=== PATIENT | male | born 1980 | race Caucasian/White ===

== ENCOUNTER 2017-08-08 20:24 | Observation (INO) ==
[2017-08-08] MEDS ORDERED: 0.9 % SODIUM CHLORIDE 1,000 ML IV ONE (21:00)
[2017-08-08] MEDS ORDERED: ONDANSETRON 4 MG/2 ML VIAL IV ONE (21:00)
[2017-08-08] MEDS: HYDROmorphone 2 MG/ML SYRINGE IV PRN ×2 (21:12→21:58)
--- NOTE | 2017-08-08 21:13 | Emergency Department Note ---
Abdominal Pain HPI - General Chief Complaint: Abdominal Pain Stated Complaint: abdominal pain Time Seen by Provider: 08/08/17 20:58 Source: patient Mode of arrival: ambulatory Limitations: no limitations - History of Present Illness HPI Narrative: This patient has had abdominal pain nausea vomiting since Saturday. In 2016 had a rectal carcinoma and had surgery with a colostomy had radiation and chemotherapy. 3 months ago he had a takedown of his colostomy. He went to [facility] and had a complete workup and was going to be admitted but got upset because they were not dealing with his pain. He then came over to our ER. I discussed case with Dr. Lane and he will be admitted. - Related Data Home Medications Medication Instructions Recorded Confirmed morphine 15 mg PO PRN PRN 04/12/17 04/12/17 Allergies Allergy/AdvReac Type Severity Reaction Status Date / Time metoclopramide [From Reglan] Allergy Severe Anxiety Verified 04/12/17 08:05 Review of Systems All systems ED: reviewed and negative except as stated. Abdominal Pain PMH - Past Medical History Medical history: Reports: cancer (colon) Surgical history ED: Reports: colectomy, colostomy - Social History Smoking status: Former smoker Physical Exam - General Limitations: no limitations General appearance: alert - Head Head exam: atraumatic - Eye Eye exam: Present: normal appearance - ENT ENT exam: normal exam - Neck Neck exam: Present: normal inspection - Chest Chest inspection: Present: normal inspection - Respiratory Respiratory exam: Present: normal lung sounds bilaterally - Cardiovascular Cardiovascular exam: Present: regular rate, normal rhythm, normal heart sounds - Abdominal Exam Abdominal exam: Present: soft, tenderness, hypoactive bowel sounds. Absent: distention, guarding, rebound, rigidity Abdominal tenderness: Present: diffuse, moderate - Neurological Exam Neurological exam: Present: alert - Psychiatric Psychiatric exam: Present: normal affect, normal mood - Skin Skin exam: Present: warm, dry, intact Course Vital Signs Temperature 97.6 F 08/08/17 20:25 Pulse Rate 69 08/08/17 20:25 Respiratory Rate 19 08/08/17 20:25 Blood Pressure 144/89 08/08/17 20:25 Pulse Oximetry (%) 100 08/08/17 20:25 Temperature 97.6 F 08/08/17 20:25 Pulse Rate 69 08/08/17 20:25 Respiratory Rate 19 08/08/17 20:25 Blood Pressure 144/89 08/08/17 20:25 Pulse Oximetry (%) 100 08/08/17 20:25 Disposition Pt seen by IT ARCHITECTURE CONSULTANT/PA only: No Clinical Impression: Abdominal pain, Gastroenteritis Disposition: Xfer As Outpt/Obs ([facility]) Condition: Good Referrals: Ivan Renee MD [Primary Care Provider] - Time of Disposition: 21:13
[2017-08-08] MEDS ORDERED: PROMETHAZINE 25 MG/ML VIAL IV PRN (22:32)
[2017-08-08] MEDS ORDERED: ONDANSETRON 4 MG/2 ML VIAL IV PRN (22:32)
[2017-08-08] MEDS ORDERED: ALBUTEROL SULFATE 2.5 MG/3 ML NEBULIZER NEB PRN (22:32)
[2017-08-08] MEDS ORDERED: ACETAMINOPHEN 325 MG TABLET PO PRN (22:32)
[2017-08-08] MEDS ORDERED: HYDROmorphone 2 MG/ML SYRINGE IV PRN (22:59)
--- NOTE | 2017-08-08 23:10 | Internal Med History&Physical ---
Medical - H&P: HPI Patient information: Note initiated : 08/08/17 at 11:07 pm Service Date, if different from initiated Date: [] Patient: Kay Aleman a 37 y/o M admitted on 08/08/17 for abdominal pain. Chief Complaint: [] History of present illness: Mr. Aleman is a 37 year old Male with h/o rectal cancer , s/p resection, radiation and chemo presents to the hospital after signing out AMA from [facility] . The patient has presented to the hospital due to abdominal pain, in the right lower and left lower quadrant, sharp, constant with waxing and waning features. movement making it worse, better with opiate pain meds. This was associated with nausea and vomiting. The patient has been able to tolerate some po but not much. He seems to have been diagnosed with rectal CA last year, s/p resection by Dr Man, he had chemo and radiation after surgery. He had a colonoscopy done in 04/06, On digital exam the anastomosis was easily felt. It was tight but could easily be dilated to admit an index finger. Colonoscope was then introduced into the rectum and passed around to the cecum. The ileocecal valve and appendiceal orifice were clearly seen. He had inspissated mucus and barium throughout the colon but no polyps, masses or mucosal abnormalities were seen. The anoscope was then inserted and the anastomosis further dilated to admit the anoscope. The patient tolerated the procedure well. No complications. He underwent a reanastomosis of the divertiing ilostomy later. In the [facility] ER the patient has normal labs and vitals. wbc 6.0, hb 15, plat 194, Na 133, K 4.2, Bicarb 26, bun 14, creat 1.[address] glucose [address] showed minimally dilated small and large bowel ileus, large stool in the large intestine.anastomosis in the rectosigmoid with thickening and is heterogenous. All systems: reviewed and no additional remarkable complaints except as stated ( as per HPI) Medical - H&P: PMH Medical history: colon cancer back pain, arhtritis. Surgical history: s/p rectal resection. colostomy and revision. Family history: reviewed and not pertinent (no h/o colon ca,) Social history: non smoker, denies heavy etoh use, uses thc intermittently Medical - H&P: Meds Home Medications Medication Instructions Recorded Confirmed Type morphine 15 mg PO PRN PRN 04/12/17 08/08/17 History Allergies Allergy/AdvReac Type Severity Reaction Status Date / Time metoclopramide [From Reglan] Allergy Severe Anxiety Verified 04/12/17 08:05 Medical - H&P: Exam - Constitutional Vitals: Temp Pulse Resp BP Pulse Ox 97.4 F 57 L 14 130/82 99 08/08/17 22:27 08/08/17 22:27 08/08/17 22:27 08/08/17 22:27 08/08/17 22:27 Exam: GENERAL: The patient is a well-developed, well-nourished in no apparent distress. Is alert and oriented x3. VITAL SIGNS: Reviewed and as noted elsewhere. HEENT: Head is normocephalic and atraumatic. Extraocular muscles are intact. Pupils are equal, round, and reactive to light. Nares appeared normal. Mouth appears any without lesions. Mucous membranes are moist. NECK: Normal to inspection, Supple, No lymphadenopathy or thyromegaly. LUNGS: Air entry equal on both sides, no wheezing, crackles or rhonchi noted. No accessory muscles of respiration HEART: Regular rate and rhythm normal, S1 and S2 heard, no Gallop, S3 or Rub Noted, No Gross murmur heard. ABDOMEN: soft, diffuse tenderness, maximally in the right lumbar, lower quadraant, and the left lumbar,lower quadrant, hypoactive bowel sounds. EXTREMITIES: No cyanosis, clubbing, rash, lesions or edema. NEUROLOGIC: Cranial nerves II through XII are grossly intact. Motor and Sensory System Grossly Intact PSYCHIATRIC: Normal affect, Normal Mood. Appropriate Behavior. SKIN: No ulceration or wounds noted, No jaundice, No rash noted. Medical - H&P: A/P (1) Stricture of sigmoid colon Current visit: Yes Status: Acute (2) Abdominal pain Current visit: Yes Status: Acute (3) Constipation Current visit: Yes Status: Acute - Narrative A/P Narrative: A/P Abdominal pain Nausea and Vomiting Possible Stricture of rectosigmoid anastomosis, Constipation Plan NPO status for now, NG Tube if patient has persistent vomiting Surgery consulted, Dr Lane advised to get Gastrografin enema in AM. Patient likely has a stricture at the region of rectosigmoid anastomosis, given his last colonoscopy done showed narrow orifice. He was scheduled for repeat colonoscopy this week. IV Dilaudid for pain management ( was taking morphine IR at home 15mg 3-4 times day IV fluids dvt hep sq full code.
[2017-08-08] MEDS ORDERED: DEXTROSE 5%-1/2NS W/20MEQ KCL 1,000 ML IV SCH (23:15)
[2017-08-08] MEDS: 0.9 % SODIUM CHLORIDE 10 ML SYRINGE IV SCH (23:25)
[2017-08-09] MEDS ORDERED: PROMETHAZINE 25 MG/ML VIAL ONE (00:46)
[2017-08-09] MEDS ORDERED: HYDROmorphone 2 MG/ML SYRINGE ONE ×2 (00:46→04:28)
[2017-08-09] MEDS ORDERED: ONDANSETRON 4 MG/2 ML VIAL ONE (04:43)
[2017-08-09 05:21] LABS: Mean Cell Volume 87.2 fL (80.0-100.0); Mean Corpuscular HGB Conc 33.6 g/dL (31.0-36.0); Mean Corpuscular Hemoglobin 29.3 pg (26.0-34.0); Platelet Count 191 K/mcL (140-440); RBC 4.77 M/mcL (4.50-5.90); Red Cell Distribution Width 14.7 % (11.5-14.5)
[2017-08-09] MEDS: 0.9 % SODIUM CHLORIDE 10 ML SYRINGE IV SCH (05:40)
[2017-08-09 05:43] LABS: ALT/SGPT 7 U/l (0-40); Albumin 3.7 gm/dL (3.2-5.2); Albumin/Globulin Ratio 1.4 (1.0-2.3); Alkaline Phosphatase 56 U/L (39-117); Bilirubin,Direct < 0.2 mg/dL (0.0-0.3); Blood Urea Nitrogen 14 mg/dl (6-20); Gamma Glutamyl Transpeptidase 15 U/L (8-61); Uric Acid 5.1 mg/dL (2.5-8.0)
[2017-08-09 06:18] LABS: Band Neutrophils % 2 % (0-10); Lymphocytes % 13 % (15-49); Monocytes % (Manual) 13 % (1-12); Platelet Estimate NORMAL (NORMAL); RBC Morphology NORMAL (NORMAL); Segmented Neutrophils % 72 % (38-78)
[2017-08-09] MEDS ORDERED: HEPARIN 5,000 UNIT/ML VIAL SQ SCH (09:00)
[2017-08-09] MEDS ORDERED: FAMOTIDINE/PF 20 MG/2 ML VIAL IV SCH (09:00)
--- NOTE | 2017-08-09 10:58 | Transfer Summary ---
Transfer Discharge Sum: Prov Patient information: Note initiated : 08/09/17 at 10:52 am Service Date, if different from initiated Date: [] Patient: Kay Aleman 37 y/o M admitted on 08/08/17 for Abdominal Pain, Gastroenteritis. Chief Complaint: [] Date of admission: 08/08/17 22:27 Discharge Date: 08/09/17 Primary care physician: Ivan Renee Admitting clinician: Perlita Jackson Consults: 08/08/17 22:02 Consult to Physician [CONS] Stat Comment: Consulting Provider: Perlita Jackson Reason For Exam: Physician to Consult 08/08/17 22:03 Consult to Physician [CONS] Stat Comment: Consulting Provider: Marck Lane Reason For Exam: Physician to Consult 08/08/17 22:32 Consult to Physician [CONS] Stat Comment: h/o rectal cancer, abdominal pain Consulting Provider: Marck Lane Reason For Exam: Physician to Consult Discharging clinician: Perlita Jackson Receiving physician/facility: Dr Fer Carolina Surgery/ [facility] Transfer Discharge Sum: Diag - Discharge Diagnosis (1) Stricture of sigmoid colon Status: Acute (2) Abdominal pain Status: Acute (3) Constipation Status: Acute Transfer Discharge Sum: Med - Medications Active and Home Medications: Home Medications morphine 15 mg PO DAILY 04/12/17 [History Confirmed 08/08/17] Active Medications Acetaminophen (Tylenol) 650 mg PO Q6HP PRN PRN Reason: PAIN/FEVER > 101 Albuterol Sulfate (Ventolin) 2.5 mg NEB Q2HP PRN PRN Reason: Shortness Of Breath Famotidine (Pepcid) 20 mg IV Q12 KATIE Last Admin: 08/09/17 09:28 Dose: 20 mg Hydromorphone HCl (Dilaudid) 1 mg IV Q2HP PRN PRN Reason: Pain Last Admin: 08/09/17 09:27 Dose: 1 mg Potassium Chloride/Dextrose/Sod Cl (Dextrose 5%-1/2ns W/20meq Kcl) 1,000 mls @ 84 mls/hr IV .[id number] KATIE Last Admin: 08/08/17 23:25 Dose: 84 mls/hr Ondansetron HCl (Zofran) 4 mg IV Q6HP PRN PRN Reason: Nausea And Vomiting Promethazine HCl (Phenergan) 12.5 mg IV Q6HP PRN PRN Reason: Nausea And Vomiting Last Admin: 08/09/17 08:52 Dose: 12.5 mg Sodium Chloride (Saline Flush) 10 ml IV Q8 KATIE Last Admin: 08/09/17 05:40 Dose: Not Given Transfer Discharge Sum: Hosp Hospital course: Mr. Aleman is a 37 year old Male with h/o rectal cancer , s/p resection, radiation and chemo presents to the hospital after signing out AMA from [facility] . The patient has presented to the hospital due to abdominal pain, in the right lower and left lower quadrant, sharp, constant with waxing and waning features. movement making it worse, better with opiate pain meds. This was associated with nausea and vomiting. The patient has been able to tolerate some po but not much. He seems to have been diagnosed with rectal CA last year, s/p resection by Dr Man, he had chemo and radiation after surgery. He had a colonoscopy done in 04/06, which was concerning for rectosigmoid stenosis. He underwent a reanastomosis of the diverting ileostomy later. In the [facility] ER the patient has normal labs and vitals. wbc 6.0, hb 15, plat 194, Na 133, K 4.2, Bicarb 26, bun 14, creat 1.[address] glucose [address] showed minimally dilated small and large bowel ileus, large stool in the large intestine.anastomosis in the rectosigmoid with thickening and is heterogenous. The patient was admitted to the hospital and surgery was consulted, Dr Lane evaluated the patient and reviewed his history. The patient will need further investigations to determine and chart the treatment course, this is best done with the surgery group who has been involved with the patients previous procedures. Dr Lane discussed the case with Dr Man as well as Dr Carolina and they agreed to have the patient transferred to [facility] for further management. Overnight the patient had one episode of vomiting after meds, no BM but did pass gas and was feeling better after same. His labs were unremarkable this AM The patient will be transferred to [facility] for further evaluation by his previous surgery group. Dr Fer Carolina as accepting physician. - Time Spent with Patient Total time spent providing and/or coordinating transfer services: Less than 30 minutes Transfer Discharge Sum: Exam - Constitutional Vitals: Vital Signs Temp Pulse Pulse Resp BP BP BP 08/09/17 08:00 98.1 F 64 14 123/71 08/09/17 04:00 97.5 F 57 L 16 131/76 08/09/17 00:15 98.8 F 69 16 124/78 08/08/17 22:27 97.4 F 57 L 14 130/82 08/08/17 22:20 97.6 F 68 19 139/92 08/08/17 21:31 139/92 08/08/17 21:01 68 139/95 08/08/17 20:46 62 130/81 08/08/17 20:25 97.6 F 69 19 144/89 Pulse Ox 08/09/17 08:00 98 08/09/17 04:00 98 08/09/17 00:15 98 08/08/17 22:27 99 08/08/17 22:20 98 08/08/17 21:31 08/08/17 21:01 98 08/08/17 20:46 100 08/08/17 20:25 100 Intake and Output 08/08/17 08/09/17 08/09/17 21:59 05:59 13:59 Intake Total 1000 / 1000 180 / 180 180 / 180 Output Total 50 / 50 Balance 1000 / 1000 130 / 130 180 / 180 Intake: IV 1000 / 1000 Sodium Chloride 0.9% 1,000 ml @ 1000 / 1000 Wide Open IV BOLUS ONE Rx#: [id number] Oral 180 / 180 180 / 180 Output: Emesis 50 / 50 Other: Meal Nourishment/Supplement Percent of Meal Consumed 0% # Voids 1 Weight 190 lb 197 lb Additional comments: Constitutional; Afebrile, cooperative, alert, not in distress. Eyes- No icterus, , No periorbital swelling Ears- Ext ear normal, hearing normal to conversation. Neck- Midline trachea, supple Respiratory system: Air Entry equal on both sides, No crackles or wheezing, no rhonchi. CVS- Rate rhythm regular, S1,S2 heard, no gallop, no rub. Abdomen- Soft tenderness generalized but improved since yesterday, bowel sounds better today SEASONAL SALES ASSOCIATE- AOOx3, moving all extremities, no gross focal deficit noted. Transfer Discharge Sum: Data Procedures and tests throughout hospitalization: Pending Orders 08/08/17 21:51 Resuscitation Status Routine 08/08/17 22:02 Consult to Physician [CONS] Stat 08/08/17 22:03 Consult to Physician [CONS] Stat 08/08/17 22:32 Case Management Referral .Routine Condition Routine IV Insertion/Management QSHIFT Intake and Output qshiftio Notify Provider .routine Placement to Observation Routine Vital Signs Q4 Weight Monitoring QHS Consult to Physician [CONS] Stat 0.9 % Sodium Chloride [Saline Flush] 10 ml IV Q8 Acetaminophen [Tylenol] 650 mg PO Q6HP PRN Albuterol Sulfate [Ventolin] 2.5 mg NEB Q2HP PRN Ondansetron [Zofran] 4 mg IV Q6HP PRN Promethazine [Phenergan] 12.[address] to Adjust Diet/Supplements as Needed Routine Incentive Spirometry Assess/Tx Q2HWA Nebulizer management .Routine Oxygen Order .Routine 08/08/17 22:59 Camera Engineer Referral .Routine HYDROmorphone [Dilaudid] 1 mg IV Q2HP PRN 08/08/17 23:15 Dextrose 5%-1/2Ns W/20Meq KCl 1,000 ml IV 84 mls/hr 08/08/17 Dinner NPO Except Ice Chips Diet (NOW) 08/09/17 07:00 XR enema w gastrographin Stat 08/09/17 09:00 Famotidine/Pf [Pepcid] 20 mg IV Q12 08/10/17 04:00 Complete Blood Count Man Dif DAILY Inpatient Panel DAILY 08/11/17 04:00 Complete Blood Count Man Dif DAILY Inpatient Panel DAILY 08/12/17 04:00 Complete Blood Count Man Dif DAILY Inpatient Panel DAILY 08/13/17 04:00 Complete Blood Count Man Dif DAILY Inpatient Panel DAILY 08/14/17 04:00 Complete Blood Count Man Dif DAILY Inpatient Panel DAILY Transfer Discharge Sum: A/P - Problem Maintenance (1) Stricture of sigmoid colon Status: Acute (2) Abdominal pain Status: Acute (3) Constipation Status: Acute - Plan Functional capacity at transfer: independent ambulation Overall status at transfer: patient is not back to baseline Disposition: [facility]
--- NOTE | 2017-08-09 11:03 | General Surgery Consult Note ---
History of Present Illness Patient information: Note initiated : 08/09/17 at 10:58 am Service Date, if different from initiated Date: [] Patient: Kay Aleman 37 y/o M admitted on 08/08/17 for Abdominal Pain, Gastroenteritis. Chief Complaint: [] Reason for consult: abdominal pain Requesting physician: Perlita Jackson History of present illness: 37-year-old male admitted with the distal high-grade colorectal stricture and partial colonic obstruction. The patient underwent laparoscopic low anterior resection after chemoradiation for rectal carcinoma in June 2016. He underwent 16 more weeks of chemoradiation and had takedown of his protective loop ileostomy in MarchApril 2017.. Since that time he has had irregular bowel movements up to 15 times per day. He does not have diarrhea. He had dilation of his rectal stump prior to re-anastomosis about 6 months before re- anastomosis was carried out. He states that his symptoms started on Saturday when his bowel movements stopped. He had severe crampy abdominal pain followed by nausea and vomiting. He was seen in the emergency room at [facility] but had some difficulty with the physician and transferred to our emergency room where he was evaluated and admitted. The patient is being seen in consultation. He states that he feels much better. His pain is controlled. He has less distention and he is passing large volume of flatus. After discussion with the patient I contacted the operating surgeon Dr. Arsh Man who is out of town but who stated that his partner Dr. Fer Carolina would accept the patient in transfer. The patient is clinically stable at this time and can be transferred to the surgery service under the care of Dr. Carolina at [facility]. 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 Rectal carcinoma Past surgical history: Low anterior resection with primary anastomosis With protective loop ileostomy Ileostomy reversal Transanal dilation of colorectal stricture Past family history: Mother age 57 with history of cervical cancer Father age 58 health unknown Maternal grandparent with mesothelioma Past social history: medically disabled Over [id number] smoking history stopped 1 year ago Denies alcohol use Denies drug use Medications and Allergies Home Medications Medication Instructions Recorded Confirmed Type morphine 15 mg PO DAILY 04/12/17 08/08/17 History Allergies Allergy/AdvReac Type Severity Reaction Status Date / Time metoclopramide [From Reglan] Allergy Severe Anxiety Verified 04/12/17 08:05 Exam Temp Pulse Resp BP Pulse Ox 98.1 F 64 14 123/71 98 08/09/17 08:00 08/09/17 08:00 08/09/17 08:00 08/09/17 08:00 08/09/17 08:00 - General physical appearance well developed, well nourished, no distress - Eyes PERRL, normal ocular movement - ENT normal pinna, normal nares, normal mucosa, no hearing loss, no congestion - Head Head exam IM: Present: atraumatic, normocephalic - Neck no masses, no bruits, trachea midline, no lymphadectomy, no venous distension - Cardiovascular Cardiovascular exam IM: Present: normal rate and rhythm - Respiratory normal expansion, normal respiratory effort, clear to percussion, clear to auscultation - Abdomen Abdomen: Present: soft, non tender, bowel sounds, distended (Abdomen is much less distended with good active bowel sounds) Hernia: Present: none - Genitourinary Present: normal penis with no external lesions - Rectum Rectum: Present: normal sphincter tone, no hemorrhoids, no tenderness, no masses , no bleeding, other (Very tight colorectal anastomosis with solid stool above the strictured area and induration of the rectal wall) - Integumentary Present: no rash, no growths, no abnormal pigmentation - Neurologic Present: normal coordination, normal sensation - Musculoskeletal Present: normal gait, normal posture - Psychiatric Present: oriented to time, oriented to person, oriented to place, speech is normal, memory intact Results - Labs 08/09/17 04:17 08/09/17 04:17 Abnormal lab results 08/09/17 08/09/17 Range/Units 04:17 04:17 RDW 14.7 H (11.5-14.5) % Lymphocytes % 13 L (15-49) % Monocytes % (Manual) 13 H (1-12) % Glucose 114 H (70-105) mg/dL Diabetes panel 08/09/17 Range/Units 04:17 Sodium 136 (133-145) mmol/L Potassium 4.1 (3.3-5.1) mmol/L Chloride 98 (96-108) mmol/L Carbon Dioxide 24 (22-30) mmol/L BUN 14 (6-20) mg/dl Creatinine 1.1 (0.7-1.2) mg/dl Glucose 114 H (70-105) mg/dL Calcium 8.6 (8.6-10.4) mg/dl AST 10 (0-37) U/l ALT 7 (0-40) U/l Alkaline Phosphatase 56 (39-117) U/L Total Protein 6.3 (5.9-8.4) gm/dL Albumin 3.7 (3.2-5.2) gm/dL Triglycerides 76 (<150) mg/dl Calcium panel 08/09/17 Range/Units 04:17 Calcium 8.6 (8.6-10.4) mg/dl Phosphorus 4.1 (2.7-4.5) mg/dL Albumin 3.7 (3.2-5.2) gm/dL Pituitary panel 08/09/17 Range/Units 04:17 Sodium 136 (133-145) mmol/L Potassium 4.1 (3.3-5.1) mmol/L Chloride 98 (96-108) mmol/L Carbon Dioxide 24 (22-30) mmol/L BUN 14 (6-20) mg/dl Creatinine 1.1 (0.7-1.2) mg/dl Glucose 114 H (70-105) mg/dL Calcium 8.6 (8.6-10.4) mg/dl Adrenal panel 08/09/17 Range/Units 04:17 Sodium 136 (133-145) mmol/L Potassium 4.1 (3.3-5.1) mmol/L Chloride 98 (96-108) mmol/L Carbon Dioxide 24 (22-30) mmol/L BUN 14 (6-20) mg/dl Creatinine 1.1 (0.7-1.2) mg/dl Glucose 114 H (70-105) mg/dL Calcium 8.6 (8.6-10.4) mg/dl Total Bilirubin 0.8 (0.0-1.0) mg/dL AST 10 (0-37) U/l ALT 7 (0-40) U/l Alkaline Phosphatase 56 (39-117) U/L Total Protein 6.3 (5.9-8.4) gm/dL Albumin 3.7 (3.2-5.2) gm/dL All other labs normal. Assessment and Plan (1) Colorectal anastomotic stricture Discussed patient with Dr. Arsh Man and with Dr. Fer Carolina. The patient has a good relationship with these surgeons who have done his previous surgery. He did have problems with the emergency room physicians. They are willing to accept him in transfer and he will be transferred to the surgery bautista at [facility] in stable condition. Status: Acute (2) Colon obstruction Status: Acute (3) Rectal carcinoma Status: Acute
== END 2017-08-09 11:40 | disposition short-term general hospital (02) ==
LOC: ED 20:24 → MEDSUR 20:24
PROVIDERS: ADMIT Internal Medicine; ATTEND Internal Medicine